=== PATIENT | male | born 1980 | race Hispanic/Latino ===

== ENCOUNTER 2020-05-23 16:01 | Emergency (ER) | payer OTHER ==
[~2020-05-23] VITALS: Ht 180.3 cm; Wt 66.2 kg
--- NOTE | 2020-05-24 13:53 | EKG ---
[facility] [address] [place], [place] [address] Signed Normal sinus rhythm with sinus arrhythmia Normal ECG No previous ECGs available Confirmed by AMARIS JASSO MD ([id number] on 05/24/2020 1:53:23 PM Electronically Signed By: AMARIS JASSO MD 05/24/20 1353 PATIENT NAME: DWAIN SLATER Electrocardiogram DATE OF : 80 PHYSICIAN: AMARIS JASSO MD REPORT #: [id number] REPORT IS CONFIDENTIAL AND NOT TO BE RELEASED WITHOUT AUTHORIZATION
== END 2020-05-23 18:38 | disposition home or self-care (01) ==
LOC: ED 16:01
DX: R07.9 Chest pain, unspecified (principal); M54.12 Radiculopathy, cervical region; Z88.8 Allergy status to other drugs, medicaments and biological substances
CPT/HCPCS: 71045; 80053; 83735; 84484; 85025; 93005; 93010; 99285-25